=== PATIENT | male | born 1980 | race Caucasian/White ===

== ENCOUNTER 2018-06-02 17:10 | Emergency (ER) | payer MEDICAID, OTHER ==
[~2018-06-02] VITALS: Ht 175.3 cm; Wt 113.6 kg
[2018-06-02 17:23] LABS: GLUCOSE,POINT OF CARE 160 MG/DL (70-110)
[2018-06-02] MEDS ORDERED: ASPIRIN 81 MG CHEWABLE TABLET PO ONE (18:00)
[2018-06-02 18:10] LABS: BASOPHILS % (AUTO) 0.5 % (0.0-2.0); EOSINOPHILS % (AUTO) 2.5 % (1.0-6.0); HEMATOCRIT 42.6 % (41-53); HEMOGLOBIN 14.5 g/dL (13.5-17.5); LYMPHOCYTES # (AUTO) 3.1 K/uL (1.0-4.8); LYMPHOCYTES % (AUTO) 38.9 % (22.0-44.0); MEAN CORPUSCULAR HEMOGLOBIN 28.7 pg (26.0-34.0); MEAN CORPUSCULAR VOLUME 85 fL (80-100); MONOCYTES # (AUTO) 0.7 K/uL (0.1-1.0); MONOCYTES % (AUTO) 8.5 % (2.0-9.0); NEUTROPHILS % (AUTO) 49.6 % (40.0-70.0); PLATELET COUNT (AUTO) 301 K/uL (150-450); RED BLOOD CELL COUNT(AUTO) 5.03 MIL/uL (4.50-5.90); RED CELL DISTRIBUTION WIDTH 13.9 % (11.5-14.5)
[2018-06-02] MEDS ORDERED: NITROGLYCERIN 0.4 MG SUBLINGUAL TABLET #25 SL ONE (18:15)
[2018-06-02 18:27] LABS: ANION GAP 9 mmol/L (8-16); CALCIUM, TOTAL 9.1 mg/dL (8.8-10.5); CARBON DIOXIDE 27 mmol/L (22-29); CHLORIDE 100 mmol/L (98-107); CREATININE 0.84 mg/dL (0.60-1.30); GLOMERULAR FILTR. RATE CALC > 60 mL/min (>60); GLUCOSE,RANDOM 142 mg/dL (70-110); POTASSIUM 3.7 mmol/L (3.5-5.1); SODIUM SERUM 136 mmol/L (136-145); UREA NITROGEN, BLOOD 17 mg/dL (7-18)
[2018-06-02 18:32] LABS: PROTHROMBIN TIME 10.2 SEC (9.4-11.6)
[2018-06-02 18:48] LABS: AMPHET/METH SCREEN,URINE NEGATIVE (NEGATIVE); BARBITURATE SCREEN, URINE NEGATIVE (NEGATIVE); BENZODIAZEPINES SCREEN,URINE NEGATIVE (NEGATIVE); CANNABINOID SCREEN,URINE NEGATIVE (NEGATIVE); COCAINE SCREEN,URINE NEGATIVE (NEGATIVE); METHADONE SCREEN, URINE NEGATIVE (NEGATIVE); OPIATE SCREEN,URINE NEGATIVE (NEGATIVE); PHENCYCLIDINE SCREEN,URINE NEGATIVE (NEGATIVE)
[2018-06-02 18:53] LABS: B-TYPE NATRIURETIC PEPTIDE < 5 pg/mL (0-100)
[2018-06-02 18:55] LABS: APPEARANCE,URINE CLEAR (CLEAR); BILIRUBIN,URINE NEGATIVE (NEGATIVE); GLUCOSE, URINE (UA) >=1000 mg/dL (NEGATIVE); KETONES,URINE NEGATIVE (NEGATIVE); LEUKOCYTE ESTERASE ,URINE SMALL (NEGATIVE); NITRATE,URINE NEGATIVE (NEGATIVE); OCCULT BLOOD,URINE NEGATIVE (NEGATIVE); PROTEIN,URINE NEGATIVE (NEGATIVE); UROBILINOGEN,URINE 0.2 mg/dL (<=1.0)
[2018-06-02 19:00] LABS: ALANINE AMINOTRANSFERASE 74 U/L (12-78); ALBUMIN 3.8 g/dL (3.4-5.0); ALKALINE PHOSPHATASE 95 U/L (46-116); ASPARTATE AMINOTRANSFERASE 41 U/L (15-37); BILIRUBIN,TOTAL 0.4 mg/dL (0.1-1.0); CREATINE KINASE MB 0.9 ng/mL (0-5); CREATINE KINASE, TOTAL 148 U/L (39-308); TOTAL PROTEIN, SERUM 8.2 g/dL (6.4-8.2)
[2018-06-02 19:06] LABS: BACTERIA,URINE None Seen /HPF (None Seen); RBC,URINE 0-2 /HPF (0-2); SQUAMOUS EPITHELIAL CELL,UR Rare /LPF (None Seen); WBC,URINE 0-2 /HPF (0-5)
[2018-06-02] MEDS ORDERED: MORPHINE SULFATE 4 MG/ML SYRINGE IVP ONE (19:15)
[2018-06-02] MEDS ORDERED: ONDANSETRON HCL 4 MG/2 ML VIAL IVP ONE (19:15)
[2018-06-02 21:49] VITALS: BP 138/84
== END 2018-06-02 21:52 | disposition home or self-care (01) ==
LOC: EMS 17:11
DX: F41.9 Anxiety disorder, unspecified (principal); R07.9 Chest pain, unspecified; E11.9 Type 2 diabetes mellitus without complications; I10 Essential (primary) hypertension; E78.00 Pure hypercholesterolemia, unspecified; Z79.899 Other long term (current) drug therapy
CPT/HCPCS: 36415; 71045; 80053; 80307; 81001; 82550; 82553; 82962; 83880; 84484; 85025; 85610; 85730; 93005; 96374; 96375; 99285; J2270; J2405

== ENCOUNTER 2018-07-04 08:22 | Day surgery (SDC) | payer OTHER ==
[~2018-07-04] VITALS: Ht 175.3 cm; Wt 118.2 kg
[~2018-07-04 08:22] MED LIST: CANA100T PO; LOSA50TA25 PO
[2018-07-04] MEDS ORDERED: 0.9% SODIUM CHLORIDE 10 ML SYRINGE IVP PRN (09:00)
[2018-07-04] MEDS ORDERED: METOPROLOL TARTRATE 50 MG TABLET PO PRN (09:00)
[2018-07-04 09:04] LABS: ANION GAP 5 mmol/L (8-16); CALCIUM, TOTAL 8.9 mg/dL (8.8-10.5); CARBON DIOXIDE 30 mmol/L (22-29); CHLORIDE 103 mmol/L (98-107); CREATININE 0.76 mg/dL (0.60-1.30); GLOMERULAR FILTR. RATE CALC > 60 mL/min (>60); GLUCOSE,RANDOM 160 mg/dL (70-110); POTASSIUM 4.2 mmol/L (3.5-5.1); SODIUM SERUM 138 mmol/L (136-145); UREA NITROGEN, BLOOD 17 mg/dL (7-18)
[2018-07-04] MEDS ORDERED: NITROGLYCERIN 400 MCG/SUBLINGUAL SPRAY 4.9 GM BOTTLE SL ONE ×2 (10:06→10:30)
[2018-07-04] MEDS ORDERED: METOPROLOL TARTRATE 5 MG/5 ML VIAL ONE (10:07)
[2018-07-04] MEDS ORDERED: IOVERSOL 350 MG/ML 50 ML VIAL ONE (10:16)
[2018-07-04] MEDS ORDERED: IOVERSOL 350 MG/ML 100 ML VIAL ONE (10:16)
[2018-07-04] MEDS ORDERED: SODIUM CHLORIDE 0.9% 100 ML ONE (10:17)
== END 2018-07-04 11:15 | disposition home or self-care (01) ==
LOC: SURGERY 08:22 → EDSTATUS 10:30 → SURGERY 11:15
PROVIDERS: ATTEND Internal Medicine Cardiovascular Disease
DX: I20.8 Other forms of angina pectoris (principal); M47.814 Spondylosis without myelopathy or radiculopathy, thoracic region; E11.9 Type 2 diabetes mellitus without complications; E66.9 Obesity, unspecified; J45.998 Other asthma; I11.9 Hypertensive heart disease without heart failure; Z68.38 Body mass index [BMI] 38.0-38.9, adult; Z86.59 Personal history of other mental and behavioral disorders; Z79.84 Long term (current) use of oral hypoglycemic drugs; Z88.8 Allergy status to other drugs, medicaments and biological substances; Z79.899 Other long term (current) drug therapy; Z98.890 Other specified postprocedural states
CPT/HCPCS: 36415; 75574; 80048; 93005; J7050; Q9967 ×2; J3490